=== PATIENT | female | born 1950 | race Two or more races ===

== ENCOUNTER 2025-01-15 13:50 | Emergency (ER) | payer MEDICARE, MEDICAID, SELFPAY ==
[2025-01-15 14:28] VITALS: BP 168/89; PULSE 78; RESP 16; TEMP 36.9; O2SAT 97; BMI 23.6
--- NOTE | 2025-01-15 14:33 | XR_ITS ---
Examination: CT brain head without contrast. 2-D sagittal coronal reconstructions Date and time of exam:January 15, 2025, 1444 hours INDICATIONS: Headaches lightheadedness and dizziness beginning 2 days ago CTDI: vol (mGy):46.1 DLP: (mGycm):915 Technique: Multiple CT axial sections of the brain have been obtained, 5 mm slice thickness. Contrast has not been administered. 2-D sagittal, coronal reconstructions have been obtained Low dose protocols were performed. One or more of the following dose reduction techniques were used; automated exposure control, adjustment of the mA and/or KV according to patient size, use of iterative reconstruction technique. Findings: No significant ventricular enlargement. Intra-axial or extra-axial hemorrhage density is not seen. No mass effect or midline shift Basal cisterns are not remarkable. Fourth ventricle is midline. Cranial vault intact. Impression: Negative for acute hemorrhage, mass effect or midline shift Advise clinical correlation and follow up accordingly
--- NOTE | 2025-01-15 14:33 | XR_ITS ---
Examination: PA lateral chest 2 views TECHNIQUE: Upright PA and lateral chest 2 views Exam date and time: January 15, 2025 at 1458 hours Comparison August 23, 2016 INDICATIONS: Coughing beginning one week ago. FINDINGS: Normal heart size Accentuation basilar bronchovascular markings. Increased AP dimension chest Prominent osteopenia with kyphosis dorsal spine IMPRESSION: Bronchitis pattern
--- NOTE | 2025-01-15 14:34 | PD.EDRME ---
Rapid Medical Screening Exam [facility] Arrival date/time: 01/15/25 13:50 74-year-old female presents to the emergency department today for complaints of dizziness, generalized fatigue, runny nose cough and congestion patient reports symptoms ongoing x 2 weeks Chief Complaint: Ear Time Seen by Provider: 01/15/25 14:17 Vital signs: Vital Signs Temperature 98.4 F 01/15/25 14:28 Pulse Rate 78 01/15/25 14:28 Respiratory Rate 16 01/15/25 14:28 Blood Pressure 168/89 H 01/15/25 14:28 Pulse Oximetry (%) 97 01/15/25 14:28 Oxygen Delivery Method Room Air 01/15/25 14:28
[2025-01-15 14:55] LABS: Basophils % (Auto) 0 % (0-2.5); Eosinophils % (Auto) 1 % (0-10); Hematocrit 41.5 % (36.0-46.0); Hemoglobin 14.1 g/dL (12.0-16.0); Immature Granulocytes % (Auto) 0 % (0-0); Immature Granulocytes Auto 0.02 Thou/mm3 (0.00-0.00); Lymphocytes # (Auto) 1.9 Thou/mm3 (1.0-4.8); Lymphocytes % (Auto) 25 % (10-50); Mean Corpuscular Hemoglobin 30.9 pg (25.0-35.0); Mean Corpuscular Volume 91 fL (80-100); Monocytes # (Auto) 0.5 Thou/mm3 (0.0-0.8); Monocytes % (Auto) 7 % (0-12); Neutrophils # (Auto) 5.2 Thou/mm3 (1.8-7.7); Neutrophils % (Auto) 67 % (37-80); Nucleated Red Blood Cell % 0 /100 WBC (0); Platelet Count 238 Thou/mm3 (140-440); RDW Standard Deviation 41.9 fL (36.4-46.3); Red Blood Count 4.57 Miln/mm3 (4.00-5.20); White Blood Count 7.7 Thou/mm3 (3.6-11.0)
[2025-01-15 15:04] LABS: Collection Type, Urine Clean Catch
[2025-01-15 15:12] LABS: Albumin, Serum 4.3 gm/dL (3.4-4.8); Albumin/Globulin Ratio 1.2 (1.2-2.2); Alkaline Phosphatase 113 U/L (46-116); Aspartate Amino Transferase 18 U/L (0-34); BUN/Creatinine Ratio 11 Ratio (12-20); Bilirubin,Total 0.9 mg/dL (0.3-1.2); Blood Urea Nitrogen 8 mg/dL (9-23); Calcium 9.5 mg/dL (8.3-10.6); Calcium (Corrected) 9.5 mg/dL (8.5-10.1); Carbon Dioxide 24.2 mMol/L (20.0-31.0); Creatinine (Component) 0.7 mg/dL (0.6-1.3); Estimated Creatinine Clearance 56.6 mL/min (>60); Globulin 3.5 gm/dL (2.3-3.5); Glucose 81 mg/dL (74-106); Total Protein 7.8 gm/dL (5.7-8.2); Troponin I < 0.002 ng/mL (0.0-0.045); eGFR > 60 See Note
--- NOTE | 2025-01-15 15:13 | EDNOTE_ITS ---
Upper Respiratory Inf. RME/HPI General Chief Complaint: Ear Stated Complaint: LIGHTHEADED,R) EAR DISCOMFORT,POSS FLU,WEAK, COUGH Time Seen by Provider: 01/15/25 14:17 Arrival date/time: 01/15/25 13:50 RME / HPI RME / HPI Narrative: 01/15/25 13:50 74-year-old female presents to the emergency department today for complaints of dizziness, generalized fatigue, runny nose cough and congestion patient reports symptoms ongoing x [address] GATICA MAIN ED EVALUATION: 74 year old female with past medical history significant for hypertension and hypercholesterolemia presents to the Emergency Department accompanied by the daughter with multiple complaints including: generalized body aches, subjective fevers, chills, mild headache pressure, cough, right ear plugged up , and appetite. Onset of symptoms since December 30, 2024 but symptoms have not resolved; per daughter they could not get a PCP appointment due to insurance problems and came here for evaluation. Related Data Home Medications ?Medication ?Instructions ?Recorded ?Confirmed Amlodipine Besylate 5 mg PO QDAY ##90 07/06/15 Benazepril Hcl 20 mg PO QDAY ##180 07/06/15 Timolol Maleate/Dorzolam Hcl OPHTH 1 drp Both eyes QDA Y ##10 07/06/15 DROPS * (COSOPT *) bimatoprost 0.01 % eye drops 1 drp Both eyes QDAY ##25 07/06/15 (Lumigan) Previous Rx's ?Medication ?Instructions ?Recorded benzonatate 200 mg capsule 200 mg PO TID PRN cough #14 caps 01/15/25 loratadine 10 mg tablet 10 mg PO QDAY PRN allergy sy mptoms 01/15/25 #30 tabs mometasone 50 mcg/actuation nasal 1 spray intranasal . QOD PRN 01/15/25 spray allergy symptoms #17 grams Allergies Allergy/AdvReac Type Severity Reaction Status Date / Time No Known Allergies Allergy Verified 01/15/25 13:55 Review of Systems Review of Systems Systems Reviewed: All systems reviewed, normal except as documented Past Medical History Past Medical History CARDIAC: Positive Hypercholesterolemia and Hypertension ENT: Positive Glaucoma Social History SMOKING STATUS: Never smoker SUBSTANCE USE: does not use ALCOHOL: Never ED Exam Narrative Physical exam: GENERAL APPEARANCE: alert and oriented x 4, well-developed, well-nourished, no acute distress VITALS: All vitals were reviewed and the pulse ox is 97% on room air, which is normal according to my interpretation. HEENT: Normocephalic, atraumatic; pupils equal, round, reactive to light; EOMI; mucous membranes pink, moist; oropharynx clear; mild erythema of the right TM. NECK: Supple LUNGS: CTABL; no wheezes, no rales, no rhonchi HEART: Regular rate, regular rhythm; normal S1, S2; no murmurs ABDOMEN: non distended; normal BS; soft, no tenderness, no guarding, no rebound; no masses, no organomegaly, no hernia BACK: no CVA tenderness EXTREMITIES: atraumatic; no edema NEUROLOGIC: awake; alert and oriented x4; cranial nerves II-XII grossly intact; no focal sensory or motor deficits PSYCHIATRIC: appropriate mood and affect SKIN: warm, dry, normal color; no rashes Course Quality Measures none Orders Category Date Time Status Bedside Influenza A&B Antigen Test NOW Care 01/15/25 14:[address] head/brain wo con Stat Exams 01/15/25 14:33 Completed XR chest 2V Stat Exams 01/15/25 14:33 Completed CBC Stat Lab 01/15/25 14:42 Completed Comprehensive Metabolic Panel Stat Lab 01/15/25 14:42 Completed Troponin I Stat Lab 01/15/25 14:42 Completed UA, C/S IF [Urinalysis, C/S if Indicated] Stat Lab 01/15/25 14:59 Completed Promethazine/Dextromethorph [Phenergan Dm Syrup] Med 01/15/25 15:18 Discontinued 5 ml PO X1 ONE lorataDINE [Claritin] Med 01/15/25 15:18 Discontinued 10 mg PO X1 ONE Vital Signs Vital signs: Vital Signs Temperature 98.4 F 01/15/25 14:28 Pulse Rate 78 01/15/25 14:28 Respiratory Rate 16 01/15/25 14:28 Blood Pressure 168/89 H 01/15/25 14:28 Pulse Oximetry (%) 97 01/15/25 14:28 Oxygen Delivery Method Room Air 01/15/25 14:28 Upper Respiratory Infection MDM Narrative MDM Narrative:: Raya Khan am scribing for and in the presence of Dr. Gatica. Patient data External records reviewed:: None (no previous visits) Clinical information provided by:: patient and family (daughter) Social determinants that could affect healthcare access:: none Patient has the following chronic illnesses:: hypertension and hypercholesterolemia How is presenting disease/condition affected by chronic disease/condition?: exacerbated by Evaluation data The following diagnostics were reviewed and interpreted by me:: lab results and radiology exam(s) Lab and/or radiology exams considered but not ordered:: none Interpretation Summary: Chest x-ray, 2V: my interpretation shows: aortic ectasia only otherwise no acute findings Procedure(s): XR chest 2V Accession Number(s): [id number] cc: Geeta PEARSON),Brown SERRANO; Shay Marshall MD~ Examination: PA lateral chest 2 views TECHNIQUE: Upright PA and lateral chest 2 views Exam date and time: January 15, 2025 at 1458 hours Comparison August 23, 2016 INDICATIONS: Coughing beginning one week ago. FINDINGS: Normal heart size Accentuation basilar bronchovascular markings. Increased AP dimension chest Prominent osteopenia with kyphosis dorsal spine IMPRESSION: Bronchitis pattern Dictated By: Shay Marshall MD Procedure(s): CT head/brain wo con Accession Number(s): [id number] cc: Geeta (ZACH),Brown SERRANO; Shay Marshall MD~ Examination: CT brain head without contrast. 2-D sagittal coronal reconstructions Date and time of exam:January 15, 2025, 1444 hours INDICATIONS: Headaches lightheadedness and dizziness beginning 2 days ago CTDI: vol (mGy):46.1 DLP: (mGycm):915 Technique: Multiple CT axial sections of the brain have been obtained, 5 mm slice thickness. Contrast has not been administered. 2-D sagittal, coronal reconstructions have been obtained Low dose protocols were performed. One or more of the following dose reduction techniques were used; automated exposure control, adjustment of the mA and/or KV according to patient size, use of iterative reconstruction technique. Findings: No significant ventricular enlargement. Intra-axial or extra-axial hemorrhage density is not seen. No mass effect or midline shift Basal cisterns are not remarkable. Fourth ventricle is midline. Cranial vault intact. Impression: Negative for acute hemorrhage, mass effect or midline shift Advise clinical correlation and follow up accordingly Dictated By: hSay Marshall MD Medications / Prescriptions Medications or Prescriptions considered but not ordered:: none Medication administrations:: Medication Administration History Discontinued Medications Loratadine (Loratadine 10 Mg Tablet) 10 mg PO X1 ONE Stop: 01/15/25 15:19 Last Admin: 01/15/25 15:33 Dose: 10 mg Documented By: SHEILA Promethazine HCl/Dextromethorphan (Promethazine/Dm Syrup 5 Ml Dose) 5 ml PO X1 ONE; Protocol Stop: 01/15/25 15:19 Last Admin: 01/15/25 15:33 Dose: 5 ml Documented By: SHEILA see above Consultations Consultation(s) initiated? (list below): No Diagnosis Upper Respiratory Differential Diagnosis: upper respiratory infection, viral infection, influenza and other Most likely diagnosis given after review of the tests above:: Pressure sensation in right ear Dry cough Admission Indicated Admission indicated?: not indicated Admission Request Was there a request for admission?: No Disposition Plan Disposition Plan: Discharge Discharge Attestation Discharge Attestation: The patient and all family members were given an opportunity to ask questions and understood the discharge instructions. Discharge instructions specifically effects, indications for sooner follow up or return to the emergency department, and the expected course of current diagnosis. Patient condition: Stable Discharge Plan Plan Patient Disposition: HOME (Self Care) Prescriptions/Referrals Prescriptions/Med Rec: New loratadine 10 mg tablet 10 mg PO QDAY PRN (Reason: allergy symptoms) Qty: 30 0RF mometasone 50 mcg/actuation spray,non-aerosol 1 spray intranasal .QOD PRN (Reason: allergy symptoms) Qty: 17 0RF Rx Instructions: administer into each nostril benzonatate 200 mg capsule 200 mg PO TID PRN (Reason: cough) Qty: 14 0RF No Action Amlodipine Besylate 5 MG tablet 5 mg PO QDAY Qty: 90 bimatoprost [Lumigan] 2.5 ML drops 1 drp Both eyes QDAY Qty: 25 Benazepril Hcl 20 MG tablet 20 mg PO QDAY Qty: 180 Timolol Maleate/Dorzolam Hcl OPHTH DROPS * (COSOPT *) 10 ML drops 1 drp Both eyes QDAY Qty: 10 Problem List Clinical Impression: Pressure sensation in right ear, Dry cough Patient/Caregiver Discharge Instructions Education Materials: ED Earache Without Infection (Adult) Print Language: English Stand Alone Forms: Brooke Award Info., Patient Portal Info Letter
[2025-01-15 15:19] LABS: Bilirubin,Urine Negative (Negative); Blood,Urine Trace (Negative); Clarity,Urine Clear (Clear/Hazy); Color,Urine Colorless (Lt Yel-Yel); Culture Indicated,Urine Not Indicated; Glucose, Urine Negative (Negative); Ketones,Urine Trace (Negative); Nitrite,Urine Negative (Negative); Protein,Urine Negative (Neg - Trace); RBC,Urine 1 /hpf (0-3); Specific Gravity,Urine 1.008 (1.001-1.035); Squamous Epithelial Cell,Urine < 1 /hpf (0-5); Urobilinogen,Urine Negative mg/dL (0.0-1.0); WBC,Urine 1 /hpf (0-5)
[2025-01-15 15:24] LABS: Leukocyte Esterase,Urine Negative (Negative)
[2025-01-15 15:25] LABS: Alanine Aminotransferase 9 U/L (10-49); Anion Gap 11 (7-16); Chloride 107 mMol/L (98-107); Osmolality,Calculated 280 (275-295); Potassium 4.4 mMol/L (3.4-5.1); Sodium 142 mMol/L (136-145)
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
[2025-01-15] MEDS: lorataDINE 10 MG TABLET PO (15:33)
[2025-01-15] MEDS: PROMETHAZINE/DM SYRUP 5 ML DOSE PO (15:33)
== END 2025-01-15 15:39 | disposition home or self-care (01) ==
LOC: SERX 16:26
PROVIDERS: Nurse Practitioner Primary Care; Emergency Provider Emergency Medicine
DX: H93.8X1 Other specified disorders of right ear (principal); R51.9 Headache, unspecified; R42 Dizziness and giddiness; R05.9 Cough, unspecified
CPT/HCPCS: 36415; 70450; 71046; 80053; 81001; 84484; 85025; 87400; 99284; A9270